=== PATIENT | male | born 1995 | race Two or more races ===

== ENCOUNTER 2021-05-02 15:02 | Emergency (ER) | payer OTHER ==
[2021-05-02 15:14] VITALS: BP 115/89; PULSE 110; TEMP 98.4; BMI 27.3
[2021-05-02 16:43] LABS: BASO % 0.9 % (0-2.0); EOS % 1.2 % (0-4.5); HEMOGLOBIN 17.6 GM/dL (11.7-16.9); LYMPH % 22.2 % (8-40); MCH 28.1 pg (25.7-33.7); MCHC 34.4 g/dl (32.0-35.9); MEAN CELL VOLUME 81.8 fl (80-96); MEAN PLT VOLUME 7.5 fl (7.5-11.1); MONO % 8.3 % (3.8-10.2); NEUT % 67.4 % (42.8-82.8); PLATELET COUNT 357 10^3/uL (134-434); RBC 6.24 M/mm3 (4.00-5.60); RDW 14.8 % (11.9-15.9); WHITE BLOOD COUNT 12.5 K/mm3 (4.0-10.0)
[2021-05-02] MEDS ORDERED: hydrOXYzine PAMOATE 50 MG CAPSULE (FP) PO ONE (17:20)
[2021-05-02] MEDS ORDERED: hydrOXYzine PAMOATE 50 MG CAPSULE (FP) ONE (17:37)
[2021-05-02 19:03] LABS: COCAINE, UR NEGATIVE (NEGATIVE)
[2021-05-02 19:04] LABS: METHADONE, UR NEGATIVE (NEGATIVE); OPIATES, URI NEGATIVE (NEGATIVE); PHENCYCLIDINE,URINE NEGATIVE (NEGATIVE)
[2021-05-02 19:08] LABS: URINE AMPHETAMINES POSITIVE (NEGATIVE); URINE BARBITURATES NEGATIVE (NEGATIVE); URINE BENZODIAZEPINES NEGATIVE (NEGATIVE)
== END 2021-05-02 19:28 | disposition home or self-care (01) ==
LOC: JER 15:02
DX: F15.90 Other stimulant use, unspecified, uncomplicated (principal); R00.2 Palpitations
CPT/HCPCS: 36415; 71046-TC-FY; 80307; 82550; 82553; 84484; 85025; 93005; 93010; 99285-25